=== PATIENT | female | born 1940 | race Caucasian/White ===

== ENCOUNTER → 2019-08-04 08:47 | Outpatient (CLI) | payer MEDICARE, BC, SELFPAY ==
--- NOTE | ~2019-08-04 | XR_ITS ---
EXAMINATION: XR knee RT min 4V DATE: 08/04/2019 09:12 INDICATION: Knee pain TECHNIQUE: Four views of the right knee were obtained. COMPARISON: None. FINDINGS: Alignment is normal. No fracture or osteochondral lesion. Chondrocalcinosis is noted. There is mild tricompartmental osteoarthritis. No joint effusion/synovitis. Calcified atherosclerosis is seen. IMPRESSION: 1. No acute osseous abnormality. Reviewed, dictated and finalized at location A.
== END ==
PROVIDERS: PCP Family Medicine; Visit Provider Family Medicine
DX: M25.561 Pain in right knee (principal)
CPT/HCPCS: 73564

== ENCOUNTER → 2019-09-16 11:57 | Outpatient (CLI) | payer MEDICARE, BC, SELFPAY ==
--- NOTE | ~2019-09-16 | MM_ITS ---
EXAMINATION: MM screening [facility] BI w maría HISTORY: Screening mammogram TECHNIQUE: Craniocaudal and mediolateral oblique 3-D tomosynthesis images were obtained and synthetic 2-D images were generated. CAD analysis was submitted and interpreted. COMPARISON: Comparison to multiple prior studies sequentially, with oldest reviewed study dated 05/28. BREAST PARENCHYMAL COMPOSITION: There are scattered areas of fibroglandular density. FINDINGS: There is no evidence of suspicious mass, calcification, or architectural distortion to sugg est malignancy in either breast. There has been no suspicious interval change. IMPRESSION: 1. No mammographic evidence of malignancy. 2. Recommend routine screening mammography in one year. BI-RADS Category 1: Negative Reviewed, dictated and finalized at location A.
== END ==
PROVIDERS: Visit Provider Obstetrics & Gynecology Gynecology
DX: Z12.31 Encounter for screening mammogram for malignant neoplasm of breast (principal)
CPT/HCPCS: 77063; 77067

== ENCOUNTER → 2019-12-03 09:05 | Outpatient (CLI) | payer MEDICARE, SELFPAY ==
--- NOTE | ~2019-12-03 | DEXA_ITS ---
Bone Density Report Name: Michaela Mercado Age: 79 Sex: Female Ethnicity: White Date of : 1940 Indication: monitoring treatment; height loss; history of glucocorticoids; anorexia or bulimia; hysterectomy; postmenopausal Referring Provider: MARTHA SCHULTZ Study: Bone densitometry was performed. Exam Date: December 03, 2019 Accession number: [id number] Bone Density: Region BMD T-score Z-score Classification AP Spine (L1-L4) 1.212 1.5 4.1 Normal Femoral Neck (Left) 0.826 -0.2 2.0 Normal Total Hip (Left) 1.015 0.6 2.6 Normal Femoral Neck (Right) 0.808 -0.4 1.9 Normal Total Hip (Right) 0.978 0.3 2.3 Normal Total Hip Mean 0.997 0.5 2.5 Normal World Health Organization criteria for BMD impression classify patients as: Normal (T-score at or above -1.0), Osteopenia (T-score between -1.0 and -2.5), or Osteoporosis (T-score at or below -2.5). 10-year Fracture Risk: FRAX not reported because: All T-scores for Spine Total, Hip Total, Femoral Neck at or above -1.0 Treated for osteoporosis Previous Exams: Region Exam Age BMD T-score BMD Change BMD Change Date g/cm2 vs Baseline vs Previous AP Spine(L1-L4) 12/03/2019 79 1.212 1.5 0.108* 0.049* 06/29/2015 75 1.163 1.1 0.059* -0.009 04/02/2012 72 1.172 1.1 0.068* 0.062* 02/25/2009 68 1.110 0.6 0.006 0.006 01/31/2006 65 1.105 0.5 Total Hip(Left) 12/03/2019 79 1.015 0.6 0.027 -0.013 06/29/2015 75 1.028 0.7 0.040* -0.046* 04/02/2012 72 1.074 1.1 0.085* 0.011 02/25/2009 68 1.063 1.0 0.074* 0.074* 01/31/2006 65 0.989 0.4 Total Hip(Right) 12/03/2019 79 0.978 0.3 0.021 -0.013 06/29/2015 75 0.991 0.4 0.034* -0.029* 04/02/2012 72 1.019 0.6 0.062* -0.008 02/25/2009 68 1.027 0.7 0.070* 0.070* 01/31/2006 65 0.957 0.1 *Denotes significance at 95% confidence level, LSC for AP Spine = 0.022 g/cm2, LSC for Total Hip = 0.027 g/cm2 Clinical Information Provided by Patient: Has taken Glucocorticoids Is being treated for osteoporosis Has used the following medications: HRT (i.e. estrogen/hormone therapy), Vitamin D Has the following medical conditions: Anorexia or Bulimia, Hysterectomy Patient maximum height was 63 Menopause Age: 46 Does not regularly consume dairy produc
== END ==
PROVIDERS: PCP Family Medicine; Visit Provider Obstetrics & Gynecology Gynecology
DX: Z78.0 Asymptomatic menopausal state (principal)
CPT/HCPCS: 77080

== ENCOUNTER → 2020-02-27 08:44 | Outpatient (CLI) | payer MEDICARE, SELFPAY ==
--- NOTE | ~2020-02-27 | CT_ITS ---
EXAMINATION: CT brain wo con DATE: 02/27/2020 08:58 INDICATION: Patient fell and struck struck head. Injury to head and face. TECHNIQUE: Computed tomography (CT) of the head was performed without intravenous contrast. The mA wa s adjusted according to patient size. Iterative reconstruction technique was employed. Exam dose: 59 9.57 mGy-cm total exam DLP. COMPARISON: 08/29/2018 CT brain FINDINGS: Bilateral vertebral artery, basilar artery and bilateral carotid siphon and supraclinoid in ternal carotid artery calcification. There is patchy diminished attenuation of the subcortical and periventricular cerebral white matter, likely due to chronic small vessel ischemic changes. There is moderate cerebral atrophy. No intracranial mass lesion or hemorrhage, midline shift or mass effect or recent cerebrovascular accident is detected. No subdural or epidural hematoma. No fracture or bone destruction of the cranial vault. The mastoid air cells and included paranasal sinuses are normally developed and aerated. IMPRESSION: Cerebral atherosclerosis and chronic small vessel ischemic changes of cerebral white mat ter No acute intracranial finding Reviewed, dictated and finalized at Location [facility]. Reviewed, dictated and finalized at location A. 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
== END ==
PROVIDERS: PCP Internal Medicine; Visit Provider Nurse Practitioner
DX: S09.90XA Unspecified injury of head, initial encounter (principal); X58.XXXA Exposure to other specified factors, initial encounter; I67.2 Cerebral atherosclerosis
CPT/HCPCS: 70450

== ENCOUNTER 2021-07-01 01:42 | Emergency (ER) | payer OTHER, MEDICARE, BC, SELFPAY ==
--- NOTE | ~2021-07-01 | XR_ITS ---
EXAMINATION: XR shoulder RT min 2V INDICATION: Right shoulder pain after fall, initial encounter TECHNIQUE: Four views of the right shoulder are submitted. COMPARISON: None FINDINGS: There is an acute, traumatic, closed, comminuted fracture of the humeral head. The greater tuberosity appears to be on a separate fracture fragment. No additional acute osseous abnormality is identified. There is moderate osteoarthritis of the glenohumeral and acromioclavicular joints. IMPRESSION: 1. Acute comminuted fracture of the humeral head. Reviewed, dictated and finalized at location A.
[2021-07-01 01:44] VITALS: BP 197/75; PULSE 70; RESP 16; TEMP 36.6; O2SAT 100
--- NOTE | 2021-07-01 01:48 | ED.UPPEXIN ---
HPI - Extremity Injury (Upper) General Chief Complaint: Extremity Injury, Upper Stated Complaint: ARM PAIN AFTER FALL Time Seen by Provider: 07/01/21 01:44 Source: family and EMS Mode of arrival: EMS Limitations: dementia History of Present Illness HPI narrative: 81-year-old female with a history of dementia brought in by EMS. She lives in a facility and apparently was up and urinating on the floor then slipped and fell and she had injury to the right shoulder. Had no loss of consciousness. Denies any other pain or injuries at this time. Pain when she tries to move the right arm. Patient is demented unable to give any reliable history. Daughter is here at bedside. Related Data Home Medications Medication Instructions Recorded Confirmed naproxen sodium 220 mg tablet 220 mg PO .COMPLEX PRN 11/12/20 02/25/21 blood sugar diagnostic 02/22/21 02/25/21 blood-glucose meter 02/22/21 02/25/21 blood sugar diagnostic 04/13/21 blood-glucose meter 04/13/21 amlodipine 5 mg tablet 5 mg PO DAILY 04/14/21 lisinopril 40 mg tablet 40 mg PO DAILY 04/14/21 [id number] acid 0.4 1 tablet PO DAILY 04/14/21 mg-lycopene 300 mcg-lutein 250 mcg tablet nitroglycerin 0.4 mg sublingual 0.4 mg SUBLINGUAL Q5M PRN 04/14/21 tablet rosuvastatin 40 mg tablet 40 mg PO DAILY 04/14/21 Allergies Allergy/AdvReac Type Severity Reaction Status Date / Time morphine AdvReac Severe N/V Verified 02/25/21 09:09 Review of Systems Review of Systems: Other than what is noted in the HPI unable to obtain any reliable review of systems secondary to dementia ROS unobtainable: Yes unobtainable due to mental status PMFSH Past Medical History Medical History Arthritis Cholecystectomy planned Coronary artery disease Essential (primary) hypertension Gastroesophageal reflux disease Head injury Heart disease History of heart attack Hyperlipidemia with target LDL less than 100 Hypertension Memory loss Postmenopausal SOB (shortness of breath) Spleen absent Vitamin D deficiency, unspecified Surgical History Surgical History H/O: hysterectomy Hx of tonsillectomy Family History Family History Mother Family history of blood dyscrasia Family history of diabetes mellitus in first degree relative Sibling Family history of diabetes mellitus in first degree relative Family history of malignant neoplasm of breast in first degree relative Family history of congestive heart failure Father Family history of heart disease in male family member before age 55 Other Family history of arthritis Family history of malignant neoplasm Hypertension Social History Social History Smoking packs per day: 1 Smoking cigarettes per day: 20.0 Years smoked: 10 Smoking pack-years: 10.00 Smoking status: Former smoker Tobacco type: cigarettes Second hand tobacco smoke exposure: No Smoking end date: 03/20/02 Alcohol intake: never Substance use: never Substance use type: does not use Gender identity (if verbalized by the patient): Female Sexual Orientation (if Verbalized by the Patient): Straight or Heterosexual Spiritual care concerns: No Exam Narrative: APPEARANCE: Well appearing, no pain or distress, well-nourished. Head normocephalic and atraumatic. EYES: PERRLA/EOMI, conjunctivae very clear. NOSE: Normal with no drainage EARS:TMS clear [address], with good light reflex. THROAT: Pharynx clear, no exudate. NECK: Supple. No adenopathy, no masses. No tenderness to palpation RESPIRATORY: Airway patent, respirations nonlabored. Clear to auscultation bilaterally, no rales, rhonchi, wheezing. CARDIOVASCULAR: Regular rate and rhythm without murmurs, rubs, or gallops. ABDOMINAL: Soft, nontender, nondistended, no h
[2021-07-01] MEDS: NAPROXEN 500 MG TABLET PO (02:00)
[2021-07-01] MEDS: ACETAMINOPHEN/CODEINE (*CRX) 300/30 MG TABLET 1 TAB PO ×2 (02:45→03:51)
--- NOTE | 2021-07-01 03:35 | PC.NURSE ---
per EDP, shoulder immobilizer placed to RIGHT shoulder.
[2021-07-01 03:55] VITALS: BP 120/70; PULSE 70; RESP 16; O2SAT 97
== END 2021-07-01 03:55 | disposition hospice, home (50) ==
PROVIDERS: Emergency Provider Emergency Medicine
DX: S42.211A Unspecified displaced fracture of surgical neck of right humerus, initial encounter for closed fracture (principal); I25.10 Atherosclerotic heart disease of native coronary artery without angina pectoris; I25.2 Old myocardial infarction; I11.9 Hypertensive heart disease without heart failure; K21.9 Gastro-esophageal reflux disease without esophagitis; M19.90 Unspecified osteoarthritis, unspecified site; Z90.81 Acquired absence of spleen; W01.0XXA Fall on same level from slipping, tripping and stumbling without subsequent striking against object, initial encounter
CPT/HCPCS: 73030; 99284; A9270